=== PATIENT | female | born 1935 ===

== ENCOUNTER 2018-07-15 08:56 | Outpatient (CLI) | payer OTHER | END 2018-07-15 09:15 | disposition home or self-care (01) | LOC: OFIC 805 08:56 | DX: R42 Dizziness and giddiness (principal); H90.3 Sensorineural hearing loss, bilateral; H61.23 Impacted cerumen, bilateral ==

== ENCOUNTER 2018-08-12 09:58 | Outpatient (CLI) | payer OTHER | END 2018-08-12 10:15 | disposition home or self-care (01) | LOC: OFIC 805 09:58 | DX: R42 Dizziness and giddiness (principal); H90.3 Sensorineural hearing loss, bilateral; H81.12 Benign paroxysmal vertigo, left ear ==

== ENCOUNTER 2021-10-07 20:05 | Emergency (ER) | payer OTHER ==
[~2021-10-07] VITALS: Ht 144.8 cm; Wt 73.9 kg
[2021-10-07] MEDS ORDERED: OMEPRAZOLE20 M2 (20:16)
[2021-10-07] MEDS ORDERED: LEVOTHYROXINE25 MCG (20:16)
[2021-10-07] MEDS ORDERED: SIMVASTATIN5 MG (20:16)
[2021-10-07] MEDS ORDERED: NEURONTIN300 MG (20:16)
== END 2021-10-08 01:00 | disposition home or self-care (01) ==
LOC: ER 20:05
DX: S89.92XA Unspecified injury of left lower leg, initial encounter (principal); S39.92XA Unspecified injury of lower back, initial encounter; W18.30XA Fall on same level, unspecified, initial encounter; Y93.9 Activity, unspecified; Y92.9 Unspecified place or not applicable; Y99.9 Unspecified external cause status